=== PATIENT | female | born 1980 | race Two or more races ===

== ENCOUNTER → 2017-07-26 | Outpatient (CLI) | payer OTHER | LOC: FIMAGING 11:05 | PROVIDERS: ATTEND Obstetrics & Gynecology | DX: O09.522 Supervision of elderly multigravida, second trimester (principal); E06.3 Autoimmune thyroiditis; Z3A.19 19 weeks gestation of pregnancy ==

== ENCOUNTER 2017-12-13 12:23 | Inpatient (IN) | payer OTHER ==
[2017-12-13] MEDS ORDERED: AMMONIA AROMATIC 1 EACH AMP IH ONE (14:16)
[2017-12-13] MEDS ORDERED: LIDOCAINE 1% 300 MG/30 ML SDV ONE (14:16)
[2017-12-13] MEDS ORDERED: OLIVE OIL 118 ML BTL ONE (14:16)
[2017-12-13] MEDS ORDERED: TERBUTALINE SULFATE 1 MG/ML VIAL ONE (14:16)
[2017-12-13] MEDS ORDERED: EPSOM SALT 454 GM TP PRN (14:17)
[2017-12-13] MEDS ORDERED: LIDOCAINE 1% 300 MG/30 ML SDV SC PRN ×2 (14:17→15:00)
[2017-12-13] MEDS ORDERED: LR 1,000 ML IV PRN (14:17)
[2017-12-13] MEDS ORDERED: OXYTOCIN 10 UNIT/ML VIAL ONE (14:17)
[2017-12-13] MEDS ORDERED: MISOPROSTOL 200 MCG TAB ONE (14:17)
[2017-12-13] MEDS ORDERED: OLIVE OIL 118 ML BTL MISC PRN (14:17)
[2017-12-13] MEDS ORDERED: MISOPROSTOL 200 MCG TAB PO PRN (14:17)
[2017-12-13] MEDS ORDERED: TERBUTALINE SULFATE 1 MG/ML VIAL IV PRN (14:17)
[2017-12-13] MEDS ORDERED: AMMONIA AROMATIC 1 EACH AMP IH PRN (14:17)
--- NOTE | 2017-12-13 15:03 | PDGENHP ---
History and Physical History and Physical: CARE: [facility] HPI: Patient is a 37 yo G 2 P 0 that presents to L&D with contractions that started around 5 am this morning. They have been getting stronger and closer as the day has progressed, currently q 2-4 minutes and palpate moderate. She denies leaking fluid, but has had light bloody show all morning since contractions started. Baby has been active. 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 Plans to do private cord blood banking, but would like to do brief delayed cord clamping if possible as well. EDC: 12/15/17 which is based on LMP: 03/17/2017 which is known and consistent with Ultrasound at 11 weeks. 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 MFM consult: no anticoagulation -H/O anemia - has received weekly doses of IV iron throughout most of - most recent dose was yesterday. Pt states she does not respond to po iron. Review of Systems: Constitutional: Denies any fever, chills, or fatigue HEENT: denies any visual changes, difficulty swallowing, hearing loss Cardiovascular: Denies any chest pain, palpitations, leg swelling Respiratory: denies any cough, wheezing, or shortness of breathe GI: Denies any nausea, vomiting, diarrhea, constipation : denies any dysuria, urgency, frequency, vaginal bleeding Musculoskeletal: denies any muscle or bone pain Skin: denies any rashes Neuro: denies any headache, seizures, lightheadedness, dizziness, or loss of consciousness Psychiatric: denies any depression, anxiety, or SI/HI thoughts HISTORY: Previous OB history: 2006 -TAB with D&C Past medical history: Antonia's, MTHFR -homozygous, h/o anemia and currently with - has received IV iron periodically throughout Past surgical history: [place] teeth age 23, TAB with D/C-2005 Medications: PNV w/DHA and 100 mcg methylfolate, Tirosint 38 mcg, Nature- throid 2 gr. Allergies (list reaction): Sulfa (rash) LABS: Rh: Apos ABS: Neg Rubella: Immune HbsAg: NR HIV: NR VDRL: NR 1hr: 87 GC: Neg Chlamydia: Neg Pap: Normal-05/15 GBS: neg BMI: (prepreg) 18 PHYSICAL EXAM: Constitutional: WN, A&Ox3 HEENT: normocephalic atraumatic, supple Heart: RRR, no murmur Chest: CTA-B Abdomen: Soft, nontender, gravid SVE: 5/100/0 Extremities: trace edema, negative senthil's sign Neuro: grossly normal Psych: normal affect assessment: Reassuring FHTs, baseline 130s +accels, no decels, moderate variability Contractions: toco q 2-4 Assessment: 1) 37 y/o G 2 P 2 with IUP@39.5 2) active labor 3) GBS neg 4) Cat 1 FHR tracing 5) h/o anemia 6) h/o antonia's Plan: 1) Admit to L&D 2) Intermittent monitoring per protocol 3) Diet as tolerated 4) Pain relief PRN, pt will consider epidural if needed 5) Anticipate
[2017-12-13 15:21] LABS: PLATELET COUNT 189 10^3/uL (150-400)
[2017-12-13] MEDS ORDERED: BUPIVACAINE 0.25% 30 ML SDV ONE (17:11)
[2017-12-13] MEDS ORDERED: fentaNYL 100 MCG/2 ML INJ ONE (17:11)
[2017-12-13] MEDS ORDERED: fentaNYL 200 MCG, BUPIVACAINE 0.5% 20 ML in NS 100 ML EP SCH (17:30)
[2017-12-13] MEDS ORDERED: fentaNYL 2MCG/ML/BUP 0.1% RTU 100 ML EP SCH (17:30)
[2017-12-13] MEDS ORDERED: LR 500 ML IV SCH (17:30)
--- NOTE | 2017-12-13 17:57 | PREANESOB ---
Obstetric Pre-Anesthesia Info - General Info Proposed Procedure: JOSE RAFAEL : 2 Para: 0 JEET: 12/15/17 Gestational Age: 39 week(s) and 5 day(s) - Info Status: Full Term FHR Pattern: Reassuring - Labor Status Cervical Dilation per last OB SVE: 4, 5 Indications for Labor Analgesia: Pain Control Labor Epidural: Proposed Anesthesia Allergies/Adverse Reactions: Allergy/AdvReac Type Severity Reaction Status Date / Time No Known Allergies Allergy Unverified 12/13/17 14:36 Home Medications: Medication Instructions Recorded Hydrocortisone Unk Dose 05/28/15 Thyroid Med ? 38 mcg 05/28/15 predniSONE 1 dose PO DAILY #18 tablet 05/28/15 Dha 12/13/17 Magnesium 12/13/17 [place]-3 12/13/17 12/13/17 Thyroid 2 gr 12/13/17 Visit Medications: Generic Name Dose Route Start Last Admin Trade Name Freq PRN Reason Stop Dose Admin Ammonia (Aromatic Spirit) 1 each 12/13/17 14:17 Ammonia Aromatic IH 12/23/17 14:16 ONCE PRN Fainting Lactated Ringer's 1,000 mls @ 0 mls/hr 12/13/17 14:17 12/13/17 15:25 Lr IV 12/14/17 14:16 1,000 mls PRN PRN Administration SEE PROTOCOL CONDITIONS Protocol Per Protocol Lactated Ringer's 500 mls @ 0 mls/hr 12/13/17 17:30 Lr IV 06/11/18 17:29 CONT JONATHAN As Directed Fentanyl 200 mcg/ Bupivacaine 100 mls @ 0 mls/hr 12/13/17 17:30 HCl 20 ml/ Sodium Chloride EP 12/23/17 17:29 CONT JONATHAN Protocol As Directed Ibuprofen 600 mg 12/13/17 14:17 Motrin PO 06/11/18 14:16 Q6HRS PRN post , inflammation Lidocaine HCl 0 - 300 mg 12/13/17 15:00 Lidocaine Hcl 1% SC 06/11/18 14:16 ONCE PRN episiotomy Magnesium Sulfate 454 gm 12/13/17 14:17 Epsom Salt TP 06/11/18 14:16 Q1H PRN perineal discomfort Misoprostol 800 - 1,000 mcg 12/13/17 14:17 Cytotec PO 06/11/18 14:16 ONCE PRN Vaginal Atony/Bleeding [place] Oil 118 ml 12/13/17 14:17 Sweet Oil MISC 06/11/18 14:16 ONCE PRN perineal massage Terbutaline Sulfate 0.25 mg 12/13/17 14:17 Brethine IV 06/11/18 14:16 ONCE PRN Tachysystole Discontinued Medications Generic Name Dose Route Start Last Admin Trade Name Marizol PRN Reason Stop Dose Admin Ammonia (Aromatic Spirit) Confirm 12/13/17 14:16 Ammonia Aromatic Administered 12/13/17 14:17 Dose 1 each IH .STK-MED ONE Bupivacaine HCl Confirm 12/13/17 17:11 Sensorcaine 0.25% Sdv Administered 12/13/17 17:12 Dose 30 ml .ROUTE .STK-MED ONE Fentanyl Confirm 12/13/17 17:11 Sublimaze Administered 12/13/17 17:12 Dose 100 mcg .ROUTE .STK-MED ONE Fentanyl/Bupivacaine HCl 100 mls @ 0 mls/hr 12/13/17 17:30 Fentanyl/Bupivacaine/Ns 2 Mcg/Ml 0.1% (Premix EP 12/23/17 17:29 CONT JONATHAN Protocol As Directed Lidocaine HCl Confirm 12/13/17 14:16 Lidocaine Hcl 1% Administered 12/13/17 14:17 Dose 300 mg .ROUTE .STK-MED ONE Lidocaine HCl 300 mg 12/13/17 14:17 Lidocaine Hcl 1% SC 06/11/18 14:16 ONCE PRN episiotomy Misoprostol Confirm 12/13/17 14:17 Cytotec Administered 12/13/17 14:18 Dose 1,000 mcg .ROUTE .STK-MED ONE [place] Oil Confirm 12/13/17 14:16 Sweet Oil Administered 12/13/17 14:17 Dose 118 ml .ROUTE .STK-MED ONE Oxytocin Confirm 12/13/17 14:17 Pitocin Administered 12/13/17 14:18 Dose 40 unit .ROUTE .STK-MED ONE Terbutaline Sulfate Confirm 12/13/17 14:16 Brethine Administered 12/13/17 14:17 Dose 1 mg .ROUTE .STK-MED ONE - Vital Signs Height/Weight (Nursing): Height 160.02 cm Weight 63.503 kg Labs: 12/13/17 14:50 Patient ABO/Rh A POSITIVE 12/13/17 14:50
[2017-12-13] MEDS: IBUPROFEN 600 MG TAB PO PRN (22:03)
--- NOTE | 2017-12-13 22:12 | OBDEL ---
Info Type: Vaginal Presentation at Delivery: Vertex L&D Analgesia/Anesthesia Type: Epidural GBS+: No Intrapartum Medications: Generic Name Dose Route Start Last Admin Trade Name Freq PRN Reason Stop Dose Admin Lactated Ringer's 1,000 mls @ 0 mls/hr 12/13/17 14:17 12/13/17 15:25 Lr IV 12/14/17 14:16 1,000 mls PRN PRN Administration SEE PROTOCOL CONDITIONS Protocol Per Protocol Ibuprofen 600 mg 12/13/17 14:17 12/13/17 22:03 Motrin PO 06/11/18 14:16 600 mg Q6HRS PRN Administration post , inflammation - Care Provider Embroidery Specialist/HOE WORKER: Sallie Sanchez Indications for Delivery: Spontaneous Labor Vaginal Delivery - Delivery Provider Delivery Physician/CNM: Bre Oliveira Proctoring Provider: Georgina Robins - Labor and Delivery Onset of Contractions Date: 12/13/17 Onset of Contractions Time: 05:00 Onset of Contractions Type: Spontaneous Rupture of Membranes Date: 12/13/17 Rupture of Membranes Time: 19:37 Rupture of Membranes Type: Spontaneous Amniotic Fluid Color: Meconium Stained Dilation Complete Date: 12/13/17 Dilation Complete Time: 19:36 Placenta Delivery Date: 12/13/17 Placenta Delivery Time: 21:25 Total Hours of Labor: 16 Laceration: 2nd Degree Repair: 3-0, Vicryl Vaginal Sponge Count Correct: Yes Vaginal Needle Count Correct: Yes Vaginal Sweep Performed: No EBL: 300 Delivery Events: None - Medications Labor Augmentation/Induction Methods Used: None Data JEET: 12/15/17 Gestational Age: 39 week(s) and 5 day(s) [place] Delivery Date: 12/13/17 Delivery Time: 21:21 Sex of : Male Score (1 Min): 8 Score (5 Min): 8 ICD10 Worksheet Patient Problems: Problems Problem Status Onset Vaginal delivery Acute - ICD10 Problem Qualifiers (1) Vaginal delivery
[2017-12-13] MEDS ORDERED: ACETAMINOPHEN 325 MG TAB PO PRN (22:40)
[2017-12-13] MEDS ORDERED: HYDROCODONE/APAP 5/325 TAB PO PRN (22:40)
[2017-12-13] MEDS ORDERED: HYDROCORTISONE 0.5% CREAM TP PRN (22:40)
[2017-12-13] MEDS ORDERED: SIMETHICONE 80 MG TAB CHEW PO PRN (22:40)
[2017-12-14] MEDS: IBUPROFEN 600 MG TAB PO PRN ×3 (04:18→21:07)
--- NOTE | 2017-12-14 10:05 | OBPP ---
Progress Note Assessment/Plan: Assessment: s/p PPD # 0.5 - pt is stable Plan: Continue routine pp care Encourage ambulation Plan for d/c home in 24-48 hrs 12/14/17 10:02 Subjective/ Course: 12/14/17 10:03 Pt seen and examined. Doing well with no complaints. She is tired this morning. Minimal cramping noted. Moderate lochia. She is OOB, luke regular diet, voiding and passing flatus. She is pumping and attempted to breastfeed for the first time this morning at 0800. Baby is in NICU getting help with O2 sats. Objective: 12/13/17 14:50 Patient ABO/Rh A POSITIVE 12/13/17 14:50 Temp Pulse Resp BP Pulse Ox 36.7 C 101 H 18 85/53 L 95 12/14/17 04:25 12/14/17 04:25 12/14/17 04:25 12/14/17 04:25 12/14/17 04:25 Uterine Position/Fundal Height: Umbilicus -1 Uterine Tone: Firm Physical Exam - Physical Exam Respiratory: lungs clear, normal breath sounds Cardiac/Chest: regular rate, rhythm Abdomen: normal bowel sounds, non-tender, soft, flatus (+) Extremities: non-tender, normal inspection Skin: normal color, warm/dry Neuro/Psych: alert, normal mood/affect, oriented x 3
[2017-12-14] MEDS: DOCUSATE SODIUM 100 MG CAP PO PRN ×2 (13:36→21:07)
[2017-12-15] MEDS: IBUPROFEN 600 MG TAB PO PRN ×4 (03:15→22:39)
--- NOTE | 2017-12-15 10:10 | POSTANESTH ---
Post Anesthetic Evaluation Cardiovascular Status: Similar to Pre-Op Cond Respiratory Status: Similar to Pre-op Cond. Level of Consciousness/Mental Status: Alert and Oriented Pain Control: Adequate, Prn Tx Ordered Nausea/Vomiting Control: Adequate, Prn Tx Ordered Complications Possibly Related to Anesthesia: None Noted (JOSE RAFAEL placed by Dr. Nielsen. No apparent anesthetic complications. No persistant paresthesia or muscle weakness.)
--- NOTE | 2017-12-15 10:40 | OBPP ---
Progress Note Assessment/Plan: Assessment: [id number] s/p 2ns degree laceration in NICU 2/2 O2 sat Plan: routine PP care support PRN ambulate/hydration plan to d/c home tomorrow 12/15/17 10:37 Subjective/ Course: 12/14/17 10:03 Pt seen and examined. Doing well with no complaints. She is tired this morning. Minimal cramping noted. Moderate lochia. She is OOB, luke regular diet, voiding and passing flatus. She is pumping and attempted to breastfeed for the first time this morning at 0800. Baby is in NICU getting help with O2 sats. 12/15/17 10:38 Pt doing well, she reports minimal pain and bleeding. She is without difficulty. She is ambulating and voiding without difficulty. Baby still in NICU, but O2 levels are stable. Objective: 12/13/17 14:50 Patient ABO/Rh A POSITIVE 12/13/17 14:50 Temp Pulse Resp BP Pulse Ox 36.6 C 84 16 81/49 L 95 12/14/17 21:30 12/14/17 21:30 12/14/17 21:30 12/14/17 21:30 12/14/17 21:30 Uterine Position/Fundal Height: Umbilicus -1, Midline Uterine Tone: Firm
[2017-12-15] MEDS: DOCUSATE SODIUM 100 MG CAP PO PRN (12:10)
[2017-12-16] MEDS: IBUPROFEN 600 MG TAB PO PRN ×2 (04:48→11:15)
[2017-12-16] MEDS: DOCUSATE SODIUM 100 MG CAP PO PRN (10:09)
[2017-12-16 10:16] VITALS: BP 106/70
--- NOTE | 2017-12-16 11:25 | OBPP ---
Progress Note Assessment/Plan: Assessment: 37 y/o PPD #2 s/p doing well. Plan: D/c home today with Ibuprofen and f/up @ [facility] 4 and 6 weeks. 12/16/17 11:25 Subjective/ Course: 12/14/17 10:03 Pt seen and examined. Doing well with no complaints. She is tired this morning. Minimal cramping noted. Moderate lochia. She is OOB, luke regular diet, voiding and passing flatus. She is pumping and attempted to breastfeed for the first time this morning at 0800. Baby is in NICU getting help with O2 sats. 12/15/17 10:38 Pt doing well, she reports minimal pain and bleeding. She is without difficulty. She is ambulating and voiding without difficulty. Baby still in NICU, but O2 levels are stable. 12/16/17 11:18 Pt is doing well. She is exhausted due to breast feeding struggles but they are working with and baby has a good latch. Baby is doing much better and stable off O2. She is ready to d/c to [facility]. Objective: 12/13/17 14:50 Patient ABO/Rh A POSITIVE 12/13/17 14:50 Temp Pulse Resp BP Pulse Ox 36.8 C 83 12 106/70 92 12/16/17 08:00 12/16/17 08:00 12/16/17 08:00 12/16/17 08:00 12/16/17 08:00 Uterine Position/Fundal Height: Umbilicus -3 Uterine Tone: Firm Physical Exam - Physical Exam General Appearance: WD/WN, alert, no apparent distress Neck: non-tender, full range of motion, supple Respiratory: chest non-tender, lungs clear, normal breath sounds Cardiac/Chest: regular rate, rhythm Abdomen: normal bowel sounds Extremities: swelling (no), Maite's sign (neg)
== END 2017-12-16 14:20 | disposition home or self-care (01) | DRG 775 ==
LOC: FLD 12:23 → OBSVTOIN 12:23 → FOB 23:11
PROVIDERS: ADMIT Advanced Practice Midwife; ATTEND Obstetrics & Gynecology
PROC: 0KQM0ZZ Repair Perineum Muscle, Open Approach (ICD-10-PCS; principal; 2017-12-13)
PROC: 10E0XZZ Delivery of Products of Conception, External Approach (ICD-10-PCS; principal; 2017-12-13)
DX: O70.1 Second degree perineal laceration during delivery (principal); O99.02 Anemia complicating childbirth; O99.284 Endocrine, nutritional and metabolic diseases complicating childbirth; E06.3 Autoimmune thyroiditis; Z37.0 Single live birth; Z3A.39 39 weeks gestation of pregnancy
CPT/HCPCS: J2590; J3010; J3105